=== PATIENT | female | born 1955 | race Caucasian/White ===

== ENCOUNTER 2022-06-22 13:07 | Inpatient (IN) | payer BC ==
[~2022-06-22] VITALS: Ht 172.7 cm; Wt 114.8 kg
[~2022-06-22 13:07] MED LIST: BENA-6 PO; LABE100T8 PO; LIP20 PO; MECL-160 PO; NOR10 PO
[2022-06-22 13:10] VITALS: BP_SYST 192
--- NOTE | 2022-06-22 13:10 | NUR ---
Patient triaged and placed in waiting room. VSS and patient appears in no acute distress at this time. Accompanied by SELF, awaiting available bed, and MD notified of need for MSE.
[2022-06-22 15:15] LABS: BASOPHILS % (AUTO) 0.3 % (0.0-2.0); EOSINOPHILS # (AUTO) 0.1 K/uL (0.0-0.4); HEMATOCRIT 41.5 % (36-48); LYMPHOCYTES # (AUTO) 1.2 K/uL (1.0-5.5); LYMPHOCYTES % (AUTO) 14.6 % (20.5-51.5); MEAN CORPUSCULAR VOLUME 95 fL (79.0-98.0); MONOCYTES # (AUTO) 0.5 K/uL (0.0-1.0); MONOCYTES % (AUTO) 6.5 % (1.7-9.3); NEUTROPHILS # (AUTO) 6.2 K/uL (1.8-7.7); NEUTROPHILS % (AUTO) 77.6 % (40.0-70.0); PLATELET COUNT (AUTO) 168 K/uL (130-430); RED BLOOD CELL COUNT(AUTO) 4.36 MIL/uL (4.2-6.2); RED CELL DISTRIBUTION WIDTH 13.7 % (9.0-15.0)
[2022-06-22 15:19] LABS: ANION GAP 5 (5-15); CALCIUM 9.3 mg/dL (8.4-11.0); CHLORIDE 102 mmol/L (98-107); CREATININE 1.19 mg/dL (0.55-1.30); GLUCOSE 108 mg/dL (70-99); POTASSIUM 4.5 mmol/L (3.5-5.1); SODIUM SERUM 137 mmol/L (136-145); UREA NITROGEN, BLOOD 12 mg/dL (8-21)
[2022-06-22 15:28] LABS: ALANINE AMINOTRANSFERASE 44 U/L (12-78); ALBUMIN 3.8 g/dL (3.4-4.8); ASPARTATE AMINOTRANSFERASE 23 U/L (10-37); TOTAL BILIRUBIN 0.7 mg/dL (0.0-1.0)
[2022-06-22 15:30] LABS: GFR AFRICAN AMERICAN 58 mL/min (>90)
[2022-06-22 15:32] LABS: C-REACTIVE PROTEIN QUANT < 0.2 mg/dL (0-0.5)
--- NOTE | 2022-06-22 15:43 | NUR ---
Patient to ER bed 2 to gown for evaluation. Side rails up.
--- NOTE | 2022-06-22 15:44 | NUR ---
Pt came from home c/o hot flashes and heart palpitations intermittent over the last 5 days. Pt states she was being treated for sinus infection with the use of dayquil and mor and became concerned she was experiencing negative side effects. Pt has hx of HTN, is A&Ox4, calm and cooperative. Will continue to monitor and provide care as ordered.
--- NOTE | 2022-06-22 15:50 | NUR ---
ER at bedside examining patient.
[2022-06-22] MEDS ORDERED: ASPIRIN 81 MG TAB.CHEW PO ONE (16:00)
[2022-06-22] MEDS ORDERED: ZOLPIDEM TARTRATE 5 MG TABLET PO PRN (16:30)
[2022-06-22] MEDS ORDERED: MUPIROCIN 2% TOPICAL OINTMENT 22 GM NS PRN (16:30)
[2022-06-22] MEDS ORDERED: DOCUSATE SODIUM 100 MG CAPSULE PO PRN (16:30)
[2022-06-22] MEDS ORDERED: MAGNESIUM SULFATE 50 ML IV PRN (16:30)
[2022-06-22] MEDS ORDERED: ONDANSETRON HCL 4 MG/2 ML VIAL IVP PRN (16:30)
[2022-06-22] MEDS ORDERED: POTASSIUM CHLORIDE 20 MEQ TAB.PRT.SR PO PRN (16:30)
[2022-06-22] MEDS ORDERED: METOPROLOL TARTRATE 50 MG TABLET PO ONE ×2 (16:30→16:45)
[2022-06-22] MEDS ORDERED: LORazepam 2 MG/ML VIAL IVP PRN (16:30)
[2022-06-22] MEDS ORDERED: MORPHINE 2 MG/ML INJ. SYRINGE IVP PRN ×2 (16:30)
[2022-06-22] MEDS ORDERED: ACETAMINOPHEN 325 MG TABLET PO PRN (16:30)
--- NOTE | 2022-06-22 16:34 | NUR ---
Admit bed requested Patient will be admitted to care of . Admitted to TELE unit. Diagnosis TYPE 2 [place] Inpatient (Yes or No) Y Observation (Yes or No) N Orientation concerns or request close to nursing station (Yes or No) N Covid Status PENDING On vent or bipap NO Isolation requirements NO Needs a sitter NO From Home (Yes or if No enter name of facility) YES Requires Dialysis (Yes or No) NO Med Rec Completed (Yes of No) PENDING
[2022-06-22] MEDS ORDERED: LISI-209 PO (16:44)
[2022-06-22] MEDS: NACL 0.9% 1,000 ML IV SCH (17:49)
--- NOTE | 2022-06-22 19:35 | NUR ---
Received pt up in bed, verbally responsive. Denies any pain/discomfort at this time. Breathing adequately on RA. Pending admit bed at this time.
--- NOTE | 2022-06-22 20:38 | NUR ---
ADMISSION NOTE Received patient from ER via gurney. Patient admitted with diagnosis of TYPE 2 OK. Patient is awake, alert, oriented X 4. Patient oriented to hospital room, call light, toileting, pain management and safety-teach back done. Patient informed that will be BIJAN nurse and that their room number is 118B. Personal belongings checked and Belongings List documented. Call light within reach.
--- NOTE | 2022-06-22 20:46 | NUR ---
Patient will be admitted to care of Dr. Michaud. Admitted to [facility], room 118B. Daughter will take belongings home, pt only keeping her cellphone. Complete and up to date summary report printed. SBAR report given at bedside to GLADYS Rodriguez with opportunity for questions.
[2022-06-22 20:55] VITALS: BP_SYST 180
[2022-06-22] MEDS ORDERED: BENAZEPRIL HCL 20 MG TABLET (LOTENSIN) PO SCH (21:00)
[2022-06-22] MEDS ORDERED: CELE200C PO (21:10)
[2022-06-22] MEDS: METOPROLOL TARTRATE 50 MG TABLET PO SCH (22:05)
[2022-06-22] MEDS: cloNIDine HCL 0.1 MG TABLET PO PRN (22:05)
[2022-06-22] MEDS: ATORVASTATIN 20 MG TABLET PO SCH (22:06)
[2022-06-22 23:09] VITALS: BP_SYST 178
--- NOTE | 2022-06-23 01:18 | NUR ---
CONSULT: CONSULT CALLED FOR DR. PALMA REASON FOR CONSULT" ELEVATED TROPONIN REQUESTING CONSULT: DR. GUERREOR DYEING MACHINE BACK TENDER PHONE NUMBER: [phone]
[2022-06-23] MEDS: NACL 0.9% 1,000 ML IV SCH (05:00)
--- NOTE | 2022-06-23 07:50 | NUR ---
INITIAL ROUNDS Received pt AAOx4, no s/s resp distress, no c/o chest pain or chest pressure, no c/o pain or discomfort. Plan of care for the day reviewed with pt-pt verbalized her understanding. Pt stated her sister a week ago from cancer and this causes her to feel sad and anxious at times. Pain management, disease process, skin and safety discussed-teach back done. Side rails upx3, room close to nursing station for safety. Call light within reach.
[2022-06-23 08:23] LABS: BASOPHILS % (AUTO) 0.4 % (0.0-2.0); EOSINOPHILS # (AUTO) 0.1 K/uL (0.0-0.4); EOSINOPHILS % (AUTO) 1.2 % (0.0-4.0); HEMATOCRIT 40.8 % (36-48); LYMPHOCYTES # (AUTO) 1.4 K/uL (1.0-5.5); LYMPHOCYTES % (AUTO) 21.5 % (20.5-51.5); MEAN CORPUSCULAR VOLUME 95 fL (79.0-98.0); MONOCYTES # (AUTO) 0.4 K/uL (0.0-1.0); MONOCYTES % (AUTO) 6.2 % (1.7-9.3); NEUTROPHILS # (AUTO) 4.5 K/uL (1.8-7.7); NEUTROPHILS % (AUTO) 70.7 % (40.0-70.0); PLATELET COUNT (AUTO) 158 K/uL (130-430); RED BLOOD CELL COUNT(AUTO) 4.28 MIL/uL (4.2-6.2); RED CELL DISTRIBUTION WIDTH 13.5 % (9.0-15.0); WHITE BLOOD COUNT (AUTO) 6.3 K/uL (4.8-10.8)
[2022-06-23 08:29] VITALS: BP_SYST 125
[2022-06-23 08:42] LABS: CALCIUM 9.2 mg/dL (8.4-11.0); CREATININE 0.94 mg/dL (0.55-1.30); POTASSIUM 4.3 mmol/L (3.5-5.1)
[2022-06-23] MEDS: amLODIPine BESYLATE 10 MG TABLET PO SCH ×2 (09:00→09:31)
[2022-06-23] MEDS ORDERED: LISINOPRIL 10 MG TABLET (PRINIVIL) PO SCH (09:00)
[2022-06-23] MEDS: METOPROLOL TARTRATE 50 MG TABLET PO SCH ×2 (09:31→21:06)
[2022-06-23] MEDS: ENOXAPARIN SODIUM 40 MG/0.4 ML SYRINGE SUBCUT SCH (09:32)
[2022-06-23] MEDS ORDERED: AMOXICILLIN/CLAVULANATE POTASSIUM 875 MG TABLET PO ONE (12:00)
[2022-06-23 17:01] VITALS: BP_SYST 125
[2022-06-23 20:02] VITALS: BP_SYST 152
[2022-06-23] MEDS: AMOXICILLIN/CLAVULANATE POTASSIUM 875 MG TABLET PO SCH (21:05)
[2022-06-23] MEDS: ATORVASTATIN 20 MG TABLET PO SCH (21:05)
[2022-06-24] VITALS: BP_SYST 155
[2022-06-24 01:00] VITALS: BP_SYST 132
[2022-06-24 07:08] LABS: BASOPHILS % (AUTO) 0.5 % (0.0-2.0); EOSINOPHILS # (AUTO) 0.1 K/uL (0.0-0.4); EOSINOPHILS % (AUTO) 1.6 % (0.0-4.0); HEMATOCRIT 40.5 % (36-48); LYMPHOCYTES # (AUTO) 2.1 K/uL (1.0-5.5); LYMPHOCYTES % (AUTO) 33.3 % (20.5-51.5); MEAN CORPUSCULAR VOLUME 96 fL (79.0-98.0); MONOCYTES # (AUTO) 0.5 K/uL (0.0-1.0); MONOCYTES % (AUTO) 8.1 % (1.7-9.3); NEUTROPHILS # (AUTO) 3.7 K/uL (1.8-7.7); NEUTROPHILS % (AUTO) 56.5 % (40.0-70.0); PLATELET COUNT (AUTO) 167 K/uL (130-430); RED BLOOD CELL COUNT(AUTO) 4.23 MIL/uL (4.2-6.2); RED CELL DISTRIBUTION WIDTH 13.6 % (9.0-15.0); WHITE BLOOD COUNT (AUTO) 6.5 K/uL (4.8-10.8)
[2022-06-24 07:23] LABS: CREATININE 1.08 mg/dL (0.55-1.30); POTASSIUM 3.8 mmol/L (3.5-5.1)
[2022-06-24 08:00] VITALS: BP_SYST 169
[2022-06-24] MEDS: AMOXICILLIN/CLAVULANATE POTASSIUM 875 MG TABLET PO SCH ×2 (08:54→20:38)
[2022-06-24] MEDS: cloNIDine HCL 0.1 MG TABLET PO PRN (08:55)
[2022-06-24] MEDS: amLODIPine BESYLATE 10 MG TABLET PO SCH ×2 (08:56→09:00)
[2022-06-24] MEDS: METOPROLOL TARTRATE 50 MG TABLET PO SCH ×2 (08:56→20:38)
[2022-06-24] MEDS: ENOXAPARIN SODIUM 40 MG/0.4 ML SYRINGE SUBCUT SCH (08:58)
--- NOTE | 2022-06-24 18:57 | NUR ---
PT resting in bed with call light in reach. pt had elevated BP in AM, PRN Clonidine was administered. district traffic chief was informed. No new orders. pt pending echocardiogram. pt denies discomfort or pain.
[2022-06-24 20:00] VITALS: BP_SYST 133
[2022-06-24] MEDS: ATORVASTATIN 20 MG TABLET PO SCH (20:40)
[2022-06-25] VITALS: BP_SYST 135
[2022-06-25 07:20] LABS: BASOPHILS % (AUTO) 0.2 % (0.0-2.0); EOSINOPHILS # (AUTO) 0.1 K/uL (0.0-0.4); EOSINOPHILS % (AUTO) 1.5 % (0.0-4.0); HEMATOCRIT 40.5 % (36-48); LYMPHOCYTES % (AUTO) 29.1 % (20.5-51.5); MEAN CORPUSCULAR VOLUME 95 fL (79.0-98.0); MONOCYTES # (AUTO) 0.5 K/uL (0.0-1.0); MONOCYTES % (AUTO) 7.5 % (1.7-9.3); NEUTROPHILS # (AUTO) 4.2 K/uL (1.8-7.7); NEUTROPHILS % (AUTO) 61.7 % (40.0-70.0); PLATELET COUNT (AUTO) 150 K/uL (130-430); RED BLOOD CELL COUNT(AUTO) 4.28 MIL/uL (4.2-6.2); RED CELL DISTRIBUTION WIDTH 13.4 % (9.0-15.0); WHITE BLOOD COUNT (AUTO) 6.8 K/uL (4.8-10.8)
[2022-06-25 08:00] VITALS: BP_SYST 146
--- NOTE | 2022-06-25 08:16 | NUR ---
Assumed pt care. Pt lying in bed, tele monitor in place, call light in reach. Vital signs stable. Pt pending echocardiogram, will monitor for results.
[2022-06-25 08:34] LABS: CREATININE 1.12 mg/dL (0.55-1.30); POTASSIUM 3.8 mmol/L (3.5-5.1)
[2022-06-25] MEDS: AMOXICILLIN/CLAVULANATE POTASSIUM 875 MG TABLET PO SCH (08:48)
[2022-06-25] MEDS: METOPROLOL TARTRATE 50 MG TABLET PO SCH (08:48)
[2022-06-25] MEDS: ENOXAPARIN SODIUM 40 MG/0.4 ML SYRINGE SUBCUT SCH (08:48)
[2022-06-25 11:40] VITALS: BP_SYST 138
--- NOTE | 2022-06-25 14:50 | NUR ---
D/C Patient Patient given medication reconciliation form and D/C instructions. Exit Care provided. Patient verbalized understanding. MD discussed with patient the results and treatment provided. Ambulatory with steady gait for discharge to home. Patient in stable condition, ID band removed. IV catheter removed, intact and dressing applied, no active bleeding. Patient educated on IA and diet. All belongings sent with patient.
== END 2022-06-25 14:50 | disposition home or self-care (01) | DRG 152 ==
LOC: SED 13:07 → STU 16:20
PROVIDERS: ADMIT General Practice; ATTEND General Practice
DX: J01.90 Acute sinusitis, unspecified (principal); I21.A1 Myocardial infarction type 2; I10 Essential (primary) hypertension; I45.10 Unspecified right bundle-branch block; E66.01 Morbid (severe) obesity due to excess calories; M54.50 Low back pain, unspecified; Z20.822 Contact with and (suspected) exposure to COVID-19; F41.9 Anxiety disorder, unspecified; E78.5 Hyperlipidemia, unspecified; F41.1 Generalized anxiety disorder; Z88.1 Allergy status to other antibiotic agents; Z88.8 Allergy status to other drugs, medicaments and biological substances; Z79.899 Other long term (current) drug therapy; Z87.891 Personal history of nicotine dependence; Z80.0 Family history of malignant neoplasm of digestive organs; Z79.82 Long term (current) use of aspirin; Z88.6 Allergy status to analgesic agent; Z68.38 Body mass index [BMI] 38.0-38.9, adult
CPT/HCPCS: 36415; 36430; 70450-TC; 71045; 76376; 80048; 80053; 80061; 83036; 83735; 84443; 84484; 84702; 85025; 86140; 93005; 93306; 99285; G0378; J1650

== ENCOUNTER 2022-06-27 16:47 | Inpatient (IN) | payer BC ==
[~2022-06-27] VITALS: Ht 172.7 cm; Wt 113.9 kg
[2022-06-27 16:47] VITALS: BP_SYST 218
[~2022-06-27 16:47] MED LIST changes: -BENA-6 PO; +CELE200C PO; -MECL-160 PO; -NOR10 PO
[2022-06-27] MEDS ORDERED: LABETALOL HCL 100 MG TABLET PO ONE (17:30)
[2022-06-27] MEDS ORDERED: ONDANSETRON 4 MG ODT TAB PO ONE (17:30)
[2022-06-27 18:01] LABS: BASOPHILS % (AUTO) 0.4 % (0.0-2.0); EOSINOPHILS # (AUTO) 0.1 K/uL (0.0-0.4); EOSINOPHILS % (AUTO) 0.9 % (0.0-4.0); HEMATOCRIT 41.7 % (36-48); LYMPHOCYTES # (AUTO) 1.3 K/uL (1.0-5.5); LYMPHOCYTES % (AUTO) 19.5 % (20.5-51.5); MEAN CORPUSCULAR VOLUME 95 fL (79.0-98.0); MONOCYTES # (AUTO) 0.4 K/uL (0.0-1.0); MONOCYTES % (AUTO) 5.5 % (1.7-9.3); NEUTROPHILS # (AUTO) 4.8 K/uL (1.8-7.7); NEUTROPHILS % (AUTO) 73.7 % (40.0-70.0); PLATELET COUNT (AUTO) 153 K/uL (130-430); RED CELL DISTRIBUTION WIDTH 13.3 % (9.0-15.0); WHITE BLOOD COUNT (AUTO) 6.5 K/uL (4.8-10.8)
[2022-06-27 18:26] LABS: ANION GAP 6 (5-15); CALCIUM 9.1 mg/dL (8.4-11.0); CHLORIDE 102 mmol/L (98-107); CREATININE 1.06 mg/dL (0.55-1.30); GLUCOSE 123 mg/dL (70-99); POTASSIUM 4.3 mmol/L (3.5-5.1); UREA NITROGEN, BLOOD 18 mg/dL (8-21)
[2022-06-27 18:31] LABS: ALANINE AMINOTRANSFERASE 51 U/L (12-78); ALBUMIN 3.7 g/dL (3.4-4.8); ASPARTATE AMINOTRANSFERASE 44 U/L (10-37); GFR AFRICAN AMERICAN 66 mL/min (>90); TOTAL BILIRUBIN 0.7 mg/dL (0.0-1.0)
[2022-06-27] MEDS ORDERED: METOCLOPRAMIDE HCL 10 MG TABLET PO ONE (20:30)
[2022-06-27] MEDS ORDERED: ACETAMINOPHEN 325 MG TABLET PO ONE (20:30)
[2022-06-28 04:15] VITALS: BP_SYST 150
[2022-06-28] MEDS: LABETALOL HCL 100 MG TABLET PO SCH ×2 (09:00→21:00)
[2022-06-28] MEDS ORDERED: ASPIRIN 81 MG TAB.CHEW PO SCH (09:00)
[2022-06-28] MEDS ORDERED: LOSARTAN/HYDROCHLOROTHIAZIDE TAB (HYZAAR 50-12.5 MG) PO SCH (09:00)
[2022-06-28 11:15] VITALS: BP_SYST 139
[2022-06-28] MEDS ORDERED: ACETAMINOPHEN 325 MG TABLET PO PRN (12:15)
[2022-06-28] MEDS ORDERED: ONDANSETRON HCL 4 MG/2 ML VIAL IVP PRN (12:15)
[2022-06-28] MEDS ORDERED: HYDROcodone/ACETAMIN 5-325 MG TAB (NORCO/ VICODIN) PO PRN (12:15)
[2022-06-28] MEDS ORDERED: HYDROcodone/ACETAMIN 10-325 MG TAB PO PRN (12:15)
[2022-06-28] MEDS ORDERED: LORazepam 2 MG/ML VIAL IVP PRN (12:15)
[2022-06-28] MEDS ORDERED: NALOXONE HCL 0.4 MG/ML AMP (NARCAN) IVP PRN ×2 (12:15)
[2022-06-28] MEDS ORDERED: LABETALOL HCL 100 MG TABLET PO SCH (14:00)
[2022-06-28] MEDS ORDERED: NORMAL SALINE 5 ML DISP.SYRIN IVF SCH (14:00)
[2022-06-28] MEDS: ATORVASTATIN 20 MG TABLET PO SCH (14:43)
[2022-06-28] MEDS: NORMAL SALINE 5 ML DISP.SYRIN IVF SCH ×2 (14:46→21:26)
[2022-06-28] MEDS: HYDROCHLOROTHIAZIDE 12.5 MG CAPSULE (HCTZ) PO SCH (14:47)
[2022-06-28] MEDS: LOSARTAN POTASSIUM 50 MG TABLET (COZAAR) PO SCH (14:48)
[2022-06-28 15:52] VITALS: BP_SYST 127
[2022-06-28 19:35] VITALS: BP_SYST 120
[2022-06-28] MEDS ORDERED: ATORVASTATIN 20 MG TABLET PO SCH (21:00)
[2022-06-28] MEDS: AMOXICILLIN/CLAVULANATE POTASSIUM 875 MG TABLET PO SCH (21:18)
[2022-06-29] VITALS: BP_SYST 126
[2022-06-29] MEDS: NORMAL SALINE 5 ML DISP.SYRIN IVF SCH ×3 (05:31→21:34)
[2022-06-29 07:21] LABS: CREATININE 1.04 mg/dL (0.55-1.30); POTASSIUM 3.7 mmol/L (3.5-5.1)
[2022-06-29 07:27] LABS: ALBUMIN 3.4 g/dL (3.4-4.8); PHOSPHORUS 3.3 mg/dL (2.7-4.5); TOTAL BILIRUBIN 0.7 mg/dL (0.0-1.0)
[2022-06-29 08:00] VITALS: BP_SYST 193
[2022-06-29 08:06] LABS: BASOPHILS % (AUTO) 0.5 % (0.0-2.0); EOSINOPHILS # (AUTO) 0.1 K/uL (0.0-0.4); EOSINOPHILS % (AUTO) 1.3 % (0.0-4.0); HEMATOCRIT 41.1 % (36-48); LYMPHOCYTES # (AUTO) 1.5 K/uL (1.0-5.5); LYMPHOCYTES % (AUTO) 23.5 % (20.5-51.5); MEAN CORPUSCULAR VOLUME 96 fL (79.0-98.0); MONOCYTES # (AUTO) 0.4 K/uL (0.0-1.0); MONOCYTES % (AUTO) 6.3 % (1.7-9.3); NEUTROPHILS # (AUTO) 4.5 K/uL (1.8-7.7); NEUTROPHILS % (AUTO) 68.4 % (40.0-70.0); PLATELET COUNT (AUTO) 156 K/uL (130-430); RED CELL DISTRIBUTION WIDTH 13.4 % (9.0-15.0); WHITE BLOOD COUNT (AUTO) 6.5 K/uL (4.8-10.8)
[2022-06-29] MEDS: HYDROCHLOROTHIAZIDE 12.5 MG CAPSULE (HCTZ) PO SCH (08:47)
[2022-06-29] MEDS: LOSARTAN POTASSIUM 50 MG TABLET (COZAAR) PO SCH (08:47)
[2022-06-29] MEDS: CELECOXIB 200 MG CAPSULE PO SCH (08:48)
[2022-06-29] MEDS: ATORVASTATIN 20 MG TABLET PO SCH (08:48)
[2022-06-29] MEDS: LABETALOL HCL 100 MG TABLET PO SCH (08:49)
[2022-06-29] MEDS: AMOXICILLIN/CLAVULANATE POTASSIUM 875 MG TABLET PO SCH ×2 (08:54→20:31)
[2022-06-29 12:21] VITALS: BP_SYST 138
[2022-06-29 16:07] VITALS: BP_SYST 123
[2022-06-29 19:35] VITALS: BP_SYST 133
[2022-06-30] VITALS: BP_SYST 134
[2022-06-30] MEDS: NORMAL SALINE 5 ML DISP.SYRIN IVF SCH (06:23)
[2022-06-30 08:00] VITALS: BP_SYST 165
[2022-06-30] MEDS: HYDROCHLOROTHIAZIDE 12.5 MG CAPSULE (HCTZ) PO SCH (08:08)
[2022-06-30] MEDS: LOSARTAN POTASSIUM 50 MG TABLET (COZAAR) PO SCH (08:08)
[2022-06-30] MEDS: ATORVASTATIN 20 MG TABLET PO SCH (08:09)
[2022-06-30] MEDS: CELECOXIB 200 MG CAPSULE PO SCH (08:09)
[2022-06-30] MEDS: AMOXICILLIN/CLAVULANATE POTASSIUM 875 MG TABLET PO SCH (09:00)
[2022-06-30] MEDS ORDERED: HYDR12.585 PO (09:47)
[2022-06-30] MEDS ORDERED: LOSA100T3 PO (09:47)
[2022-06-30 10:30] VITALS: BP_SYST 165
[2022-06-30 11:14] LABS: CALCIUM 9.3 mg/dL (8.4-11.0); CREATININE 1.05 mg/dL (0.55-1.30); POTASSIUM 4.1 mmol/L (3.5-5.1)
[2022-06-30 14:15] LABS: BASOPHILS % (AUTO) 0.3 % (0.0-2.0); EOSINOPHILS # (AUTO) 0.1 K/uL (0.0-0.4); EOSINOPHILS % (AUTO) 1.1 % (0.0-4.0); HEMATOCRIT 41.6 % (36-48); LYMPHOCYTES # (AUTO) 1.9 K/uL (1.0-5.5); MEAN CORPUSCULAR VOLUME 96 fL (79.0-98.0); MONOCYTES # (AUTO) 0.5 K/uL (0.0-1.0); MONOCYTES % (AUTO) 6.6 % (1.7-9.3); NEUTROPHILS # (AUTO) 4.5 K/uL (1.8-7.7); PLATELET COUNT (AUTO) 157 K/uL (130-430); RED BLOOD CELL COUNT(AUTO) 4.35 MIL/uL (4.2-6.2); RED CELL DISTRIBUTION WIDTH 13.7 % (9.0-15.0); WHITE BLOOD COUNT (AUTO) 6.9 K/uL (4.8-10.8)
[2022-07-01] MEDS ORDERED: LOSARTAN POTASSIUM 50 MG TABLET (COZAAR) PO SCH (09:00)
== END 2022-06-30 11:00 | disposition home or self-care (01) | DRG 313 ==
LOC: SED 16:47 → STU 20:48
PROVIDERS: ADMIT Preventive Medicine Preventive Medicine/Occupational Environmental Medicine; ATTEND Preventive Medicine Preventive Medicine/Occupational Environmental Medicine
DX: R07.89 Other chest pain (principal); I24.8 Other forms of acute ischemic heart disease; R79.89 Other specified abnormal findings of blood chemistry; E78.5 Hyperlipidemia, unspecified; G89.29 Other chronic pain; I10 Essential (primary) hypertension; R77.8 Other specified abnormalities of plasma proteins; M54.50 Low back pain, unspecified; I45.10 Unspecified right bundle-branch block; Z20.822 Contact with and (suspected) exposure to COVID-19; Z79.899 Other long term (current) drug therapy; Z87.891 Personal history of nicotine dependence; Z88.6 Allergy status to analgesic agent
CPT/HCPCS: 36415; 71045; 80048; 80053; 83735; 84100; 84484; 85025; 87081; 93005; 99285; G0378; J8597; Q0162

== ENCOUNTER 2022-08-03 20:26 | Inpatient (IN) | payer BC ==
[~2022-08-03] VITALS: Ht 172.7 cm; Wt 109.8 kg
[~2022-08-03 20:26] MED LIST changes: +HYDR12.585 PO; -LABE100T8 PO; +LOSA100T3 PO
[2022-08-03 20:31] VITALS: BP_SYST 92
--- NOTE | 2022-08-03 20:31 | NUR ---
Placed in room 06 . Placed on sales associate, blood pressure machine and pulse oximeter. To gown for exam. Side rails up. Report given to GLADYS ALONZO
--- NOTE | 2022-08-03 21:01 | NUR ---
COVID SWAB SENT TO LAB.
[2022-08-03 21:09] LABS: BASOPHILS % (AUTO) 0.2 % (0.0-2.0); EOSINOPHILS % (AUTO) 0.2 % (0.0-4.0); HEMATOCRIT 40.2 % (36-48); HEMOGLOBIN 14.1 g/dL (12.0-16.0); LYMPHOCYTES % (AUTO) 22.8 % (20.5-51.5); MEAN CORPUSCULAR HEMOGLOBIN 33 pg (27-31); MEAN CORPUSCULAR HGB CONC 35 % (32-36); MEAN CORPUSCULAR VOLUME 94 fL (79.0-98.0); MONOCYTES # (AUTO) 0.7 K/uL (0.0-1.0); MONOCYTES % (AUTO) 7.6 % (1.7-9.3); NEUTROPHILS # (AUTO) 6.2 K/uL (1.8-7.7); NEUTROPHILS % (AUTO) 69.2 % (40.0-70.0); PLATELET COUNT (AUTO) 149 K/uL (130-430); RED BLOOD CELL COUNT(AUTO) 4.26 MIL/uL (4.2-6.2); RED CELL DISTRIBUTION WIDTH 12.9 % (9.0-15.0); WHITE BLOOD COUNT (AUTO) 8.9 K/uL (4.8-10.8)
--- NOTE | 2022-08-03 21:11 | NUR ---
BIBS W C/O OF RAPID HEART RATE THAT STARTED AT APPROX. 6PM. PT STATED SHE BELIEVES IT WAS THE PREDNISONE SHE WAS TAKING FOR SINUS INFECTION. HEART RATE CURRENTLY 83
[2022-08-03 21:13] LABS: ANION GAP 7 (5-15); CALCIUM 8.9 mg/dL (8.4-11.0); CHLORIDE 102 mmol/L (98-107); CREATININE 1.63 mg/dL (0.55-1.30); GLUCOSE 123 mg/dL (70-99); POTASSIUM 3.7 mmol/L (3.5-5.1); UREA NITROGEN, BLOOD 35 mg/dL (8-21)
[2022-08-03 21:16] LABS: GFR AFRICAN AMERICAN 40 mL/min (>90)
[2022-08-03 21:20] LABS: ALANINE AMINOTRANSFERASE 83 U/L (12-78); ALBUMIN 3.8 g/dL (3.4-4.8); ASPARTATE AMINOTRANSFERASE 35 U/L (10-37); TOTAL BILIRUBIN 0.3 mg/dL (0.0-1.0)
[2022-08-03] MEDS ORDERED: DILTIAZEM HCL 30 MG TABLET PO ONE (21:30)
[2022-08-03] MEDS ORDERED: NACL 0.9% 1,000 ML IV ONE (21:30)
[2022-08-03] MEDS ORDERED: DILTIAZEM HCL 30 MG TABLET ONE (22:04)
--- NOTE | 2022-08-03 22:07 | NUR ---
Patient resting quietly. No acute distress noted. Vital signs within normal range.
--- NOTE | 2022-08-03 23:00 | NUR ---
Admit bed requested Patient will be admitted to care of . Admitted to TELE unit. Diagnosis ACUTE KIDNEY INJURY Inpatient (Yes or No) Y Observation (Yes or No) N Orientation concerns or request close to nursing station (Yes or No) N Covid Status NEG On vent or bipap NO Isolation requirements NO Needs a sitter NO From Home (Yes or if No enter name of facility) YES Requires Dialysis (Yes or No) NO Med Rec Completed (Yes of No) YES
[2022-08-03] MEDS ORDERED: HYDR12.55 (23:14)
[2022-08-03] MEDS ORDERED: LOSA100T3 PO (23:14)
[2022-08-03] MEDS ORDERED: CYCL10TA24 PO (23:14)
[2022-08-03] MEDS ORDERED: DOXA4TAB2 PO (23:14)
[2022-08-03] MEDS ORDERED: LIP40 PO (23:14)
--- NOTE | 2022-08-03 23:15 | NUR ---
Medication reconciliation completed with information provided by PATIENT. Any prior medication reconciliation on file was reviewed and corrected.
[2022-08-03] MEDS ORDERED: DOCUSATE SODIUM 100 MG/10 ML UDC PO PRN (23:30)
[2022-08-03] MEDS ORDERED: ZOLPIDEM TARTRATE 5 MG TABLET PO PRN (23:30)
[2022-08-03] MEDS ORDERED: MORPHINE 2 MG/ML INJ. SYRINGE IVP PRN (23:30)
[2022-08-03] MEDS ORDERED: NACL 0.9% 2,000 ML IV ONE (23:30)
[2022-08-03] MEDS ORDERED: HYDROcodone/ACETAMIN 7.5-325 MG TAB PO PRN (23:30)
[2022-08-03] MEDS ORDERED: guaiFENesin/DEXTROMETHORPHAN 10 ML UDC PO PRN (23:30)
[2022-08-03] MEDS ORDERED: ONDANSETRON HCL 4 MG/2 ML VIAL IVP PRN (23:30)
[2022-08-03] MEDS ORDERED: ACETAMINOPHEN 500 MG TABLET PO PRN (23:30)
[2022-08-03] MEDS: NACL 0.9% 1,000 ML IV SCH (23:48)
--- NOTE | 2022-08-04 00:30 | NUR ---
Patient will be admitted to care of [facility]. Admitted to tele unit. Will go to room 133b. Belongings list completed. Complete and up to date summary report printed. SBAR report to be given at bedside with opportunity for questions.
--- NOTE | 2022-08-04 00:41 | NUR ---
Admission Note Received patient from ER with diagnosis of ACUTE KIDNEY INJURY. Initial Plan of Care discussed-patient verbalized understanding.Oriented to room, call light, pain management and safety.
[2022-08-04 01:11] VITALS: BP_SYST 106
--- NOTE | 2022-08-04 01:11 | NUR ---
ADMISSION NOTE Received patient from ER via gurney. Patient admitted with diagnosis of acute kidney injury. Patient is awake, alert, oriented X 4. Patient oriented to hospital room, call light, toileting, pain management and safety-teach back done. Patient informed that I (Brenda) will be her nurse and that their room number is 129-A. Personal belongings checked and Belongings List documented. Call light within reach. -Confirmed with Vikram wellington as AUBREY martinez with name, , and Pt's ID at bedside prior put telemetry box on pt. Pt denies any chest pain,pain,sob,or any acute distress. Both IV sites of LFA #20 and RAC #18 patent, no s/s any infiltration noted. NS @125 ml/hr. Pt is able to ambulate with steady gaits w/o any assistance. Discussed poc,all safety measures, not to get OOB by herself, and to use call light whenever experiencing any chest pain,pain,sob,or any acute distress, pt verbalized understanding. All safety measures in place, side rails x2,call light w/in reach. cont to monitor pt.
--- NOTE | 2022-08-04 04:10 | NUR ---
NOTES; -Pt is refused jose f SCD. Pt stated, "I can walk around and I don't need this machine on my legs."
--- NOTE | 2022-08-04 04:15 | NUR ---
ROUNDS; -Pt is asleep in bed comfortably. No s/s any chest pain,pain,sob,or any acute distress noted. All safety measures in place. Cont to monitor pt.
--- NOTE | 2022-08-04 06:32 | NUR ---
CLOSING NOTES; -Pt is resting in bed comfortably. Pt awoke upon making rounds. IVF infusing well, no s/s any infiltration noted. Pt denies any chest pain, pain,sob,or any acute distress. Call light w/in reach, side rails x2. Will endorse to next nurse to cont care.
[2022-08-04 08:57] VITALS: BP_SYST 129
[2022-08-04] MEDS ORDERED: POTASSIUM CHLORIDE 20 MEQ TAB.PRT.SR PO PRN (09:00)
[2022-08-04] MEDS ORDERED: HYDROCHLOROTHIAZIDE 12.5 MG CAPSULE (HCTZ) PO SCH (09:00)
[2022-08-04] MEDS ORDERED: ACETAMINOPHEN 500 MG TABLET PO PRN (09:00)
[2022-08-04] MEDS: PANTOPRAZOLE SODIUM 40 MG TAB PO SCH (09:02)
[2022-08-04] MEDS: LOSARTAN POTASSIUM 50 MG TABLET (COZAAR) PO SCH (09:03)
[2022-08-04] MEDS ORDERED: METOPROLOL TARTRATE 25 MG TABLET PO ONE (09:15)
[2022-08-04] MEDS ORDERED: APIXABAN 2.5 MG TABLET PO ONE (09:15)
[2022-08-04 11:04] LABS: BILIRUBIN,URINE NEGATIVE (NEGATIVE); BLOOD, URINE NEGATIVE (NEGATIVE); CLARITY/URINE CLEAR (CLEAR); COLOR,URINE YELLOW (YELLOW); GLUCOSE,URINE NEGATIVE (NEGATIVE); KETONES,URINE NEGATIVE (NEGATIVE); LEUKOCYTE ESTERASE ,URINE NEGATIVE (NEGATIVE); NITRITE, URINE NEGATIVE (NEGATIVE); PH,URINE 5.5 (5.0-8.0); PROTEIN URINE NEGATIVE (NEGATIVE); UROBILINOGEN,URINE 0.2 (0.2-1.0)
--- NOTE | 2022-08-04 16:15 | NUR ---
Dietitian Recommendations * Cardiac, 60 gm protein/day diet LP, MS, RD Please refer to Nutrition Assessment for details. Addendum: 08/04/22 at [address] Amended: Links added.
[2022-08-04 17:35] LABS: FREE T4 (FREE THYROXINE) 0.9 ng/dL (0.6-1.6); PHOSPHORUS 4.2 mg/dL (2.7-4.5); THYROID STIMULATING HORMONE 2.19 uIu/mL (0.34-4.82)
[2022-08-04 19:30] VITALS: BP_SYST 130
--- NOTE | 2022-08-04 19:40 | NUR ---
PM ASSESSMENT; -Pt is a/ox4, resting in bed comfortably. Pt denies any chest pain,pain,sob,or any acute distress. Both IV sites of LFA #20 and RAC #18 patent, no s/s any infiltration noted. NS @125 ml/hr. Pt is able to ambulate with steady gaits w/o any assistance. Discussed poc,all safety measures, not to get OOB by herself, and to use call light whenever experiencing any chest pain,pain,sob,or any acute distress, pt verbalized understanding. All safety measures in place, side rails x2,call light w/in reach. cont to monitor pt.
[2022-08-04] MEDS: ATORVASTATIN 20 MG TABLET PO SCH (20:36)
[2022-08-04] MEDS: APIXABAN 2.5 MG TABLET PO SCH (20:37)
[2022-08-04] MEDS: NACL 0.9% 1,000 ML IV SCH (20:38)
[2022-08-04] MEDS: METOPROLOL TARTRATE 25 MG TABLET PO SCH (20:43)
[2022-08-04] MEDS ORDERED: CYCLOBENZAPRINE HCL 10 MG TABLET (FLEXERIL) PO SCH (21:00)
--- NOTE | 2022-08-04 22:53 | NUR ---
ROUNDS; -Pt is laying in bed. Pt is c/o headache and legs pain but pt refused to take pain medication this time. VS stable. All safety measures in place. Call light w/in reach. cont to monitor pt.
[2022-08-05 01:08] VITALS: BP_SYST 140
[2022-08-05 01:13] LABS: CALCIUM 8.2 mg/dL (8.4-11.0); CREATININE 1.21 mg/dL (0.55-1.30); POTASSIUM 4.8 mmol/L (3.5-5.1)
[2022-08-05 01:23] LABS: ALBUMIN 3.2 g/dL (3.4-4.8); TOTAL BILIRUBIN 0.3 mg/dL (0.0-1.0)
--- NOTE | 2022-08-05 01:30 | NUR ---
ROUNDS; CRITICAL LAB [id number], IT'S TRENDING DOWN -Pt awakes, laying in bed. Pt denies any chest pain,pain,sob,or any acute distress. IVF infusing well. Call light w /in reach. Cont to monitor pt. Addendum: 08/05/22 at 0142 by [employer], GLADYS GRAHAM ADDITIONAL NOTES --WILL CALL DR. PALMA IN MORNING REGARDING CRITICAL TROPONIN.
--- NOTE | 2022-08-05 04:19 | NUR ---
ROUNDS; -Pt is asleep in bed comfortably. No s/s any chest pain,pain,sob,or any acute distress noted. All safety measures in place. Cont to monitor pt.
--- NOTE | 2022-08-05 06:28 | NUR ---
CLOSING NOTES; -Pt is resting in bed comfortably. IVF infusing well, no s/s any infiltration noted. Pt denies any chest pain, pain,sob,or any acute distress. Call light w/in reach, side rails x2. Will endorse to next nurse to cont care.
--- NOTE | 2022-08-05 06:34 | NUR ---
NOTES; NOTIFIED DR. PALMA REGARDING CRITICAL LAB [id number], IT'S TRENDING DOWN, NO FURTHER ORDER PER MD
[2022-08-05 08:40] VITALS: BP_SYST 156
[2022-08-05] MEDS: PANTOPRAZOLE SODIUM 40 MG TAB PO SCH (08:44)
[2022-08-05] MEDS: LOSARTAN POTASSIUM 50 MG TABLET (COZAAR) PO SCH (08:45)
[2022-08-05] MEDS: METOPROLOL TARTRATE 25 MG TABLET PO SCH ×2 (08:45→21:35)
[2022-08-05] MEDS: APIXABAN 2.5 MG TABLET PO SCH ×2 (08:49→21:37)
[2022-08-05 08:53] LABS: BASOPHILS % (AUTO) 0.6 % (0.0-2.0); EOSINOPHILS # (AUTO) 0.1 K/uL (0.0-0.4); EOSINOPHILS % (AUTO) 1.2 % (0.0-4.0); HEMATOCRIT 37.2 % (36-48); HEMOGLOBIN 13.1 g/dL (12.0-16.0); LYMPHOCYTES # (AUTO) 2.5 K/uL (1.0-5.5); LYMPHOCYTES % (AUTO) 35.3 % (20.5-51.5); MEAN CORPUSCULAR HEMOGLOBIN 33 pg (27-31); MEAN CORPUSCULAR HGB CONC 35 % (32-36); MEAN CORPUSCULAR VOLUME 95 fL (79.0-98.0); MONOCYTES # (AUTO) 0.5 K/uL (0.0-1.0); MONOCYTES % (AUTO) 7.5 % (1.7-9.3); NEUTROPHILS % (AUTO) 55.4 % (40.0-70.0); RED BLOOD CELL COUNT(AUTO) 3.92 MIL/uL (4.2-6.2); RED CELL DISTRIBUTION WIDTH 13.1 % (9.0-15.0)
[2022-08-05 09:47] LABS: WHITE BLOOD COUNT (AUTO) 7.2 K/uL (4.8-10.8)
[2022-08-05 13:45] LABS: PLATELET COUNT (AUTO) 136 K/uL (130-430)
[2022-08-05 16:00] VITALS: BP_SYST 129
[2022-08-05 21:04] VITALS: BP_SYST 132
[2022-08-05] MEDS: ATORVASTATIN 20 MG TABLET PO SCH (21:34)
[2022-08-06 01:07] VITALS: BP_SYST 17
[2022-08-06 06:26] VITALS: BP_SYST 155
[2022-08-06 07:02] LABS: BASOPHILS % (AUTO) 0.3 % (0.0-2.0); EOSINOPHILS # (AUTO) 0.1 K/uL (0.0-0.4); EOSINOPHILS % (AUTO) 1.4 % (0.0-4.0); HEMATOCRIT 36.2 % (36-48); HEMOGLOBIN 12.6 g/dL (12.0-16.0); LYMPHOCYTES # (AUTO) 1.8 K/uL (1.0-5.5); LYMPHOCYTES % (AUTO) 26.5 % (20.5-51.5); MEAN CORPUSCULAR HEMOGLOBIN 33 pg (27-31); MEAN CORPUSCULAR HGB CONC 35 % (32-36); MEAN CORPUSCULAR VOLUME 94 fL (79.0-98.0); MONOCYTES # (AUTO) 0.4 K/uL (0.0-1.0); MONOCYTES % (AUTO) 6.2 % (1.7-9.3); NEUTROPHILS # (AUTO) 4.5 K/uL (1.8-7.7); NEUTROPHILS % (AUTO) 65.6 % (40.0-70.0); PLATELET COUNT (AUTO) 146 K/uL (130-430); RED BLOOD CELL COUNT(AUTO) 3.85 MIL/uL (4.2-6.2); RED CELL DISTRIBUTION WIDTH 12.5 % (9.0-15.0); WHITE BLOOD COUNT (AUTO) 6.9 K/uL (4.8-10.8)
[2022-08-06 07:54] LABS: CALCIUM 8.6 mg/dL (8.4-11.0); CREATININE 1.11 mg/dL (0.55-1.30); POTASSIUM 3.7 mmol/L (3.5-5.1)
[2022-08-06 08:00] VITALS: BP_SYST 187
--- NOTE | 2022-08-06 08:00 | NUR ---
Initial notes Walking in the room, denies any chest pain but complain of some tightness on her neck and some numbness on her left arm earlier today. otherwise denies any chest pain or shortness of breath. DR paredes here and aware. Enc to call for help as needed.
[2022-08-06] MEDS: PANTOPRAZOLE SODIUM 40 MG TAB PO SCH (08:31)
[2022-08-06] MEDS: LOSARTAN POTASSIUM 50 MG TABLET (COZAAR) PO SCH (08:31)
[2022-08-06] MEDS: METOPROLOL TARTRATE 25 MG TABLET PO SCH ×2 (08:32→21:20)
[2022-08-06] MEDS: APIXABAN 2.5 MG TABLET PO SCH ×2 (08:35→21:21)
--- NOTE | 2022-08-06 08:45 | NUR ---
IMPORT CUSTOMER SERVICE MANAGER ACSW Elayne responded to a generated Suicide Risk referral. ACSW reviewed notes and assessments, no indication of suicide risk. ACSW consulted with assigned RN Slime Mcgee who denied patient has expressed SI, or was it disclosed during report. ACSW will continue to be available as needed
--- NOTE | 2022-08-06 09:02 | NUR ---
Notes- Endorse care, pt sitting in bed. Still some numbness on her left arm. Seen by Dr. Michaud and aware.
--- NOTE | 2022-08-06 10:00 | NUR ---
NOTES RECEIVED REPORT FROM THE NURSEJESSICA.
--- NOTE | 2022-08-06 10:40 | NUR ---
OPENING NOTES PT IN BED, RESTING AND WATCHING TV. DENIES ANY PAIN. C/O NUMBNESS TO LEFT UPPER EXTREMITIES. IV S/L REMAIN INTACT AND CLEAN. BED IS LOCKED AND AT LOW POSITION. CALL LIGHT WITHIN REACH. SAFETY PRECAUTION IN PLACED. MET NEEDS. WILL CONTINUE TO MONITOR
--- NOTE | 2022-08-06 14:00 | NUR ---
NOTES; PT IN BED, RESTING. IV SL MAINTAIN PATENT AND INTACT. NO S/S INFILTRATION OR INFECTION. DENIES ANY PAIN OR DISCOMFORT. SAFETY PRECAUTION IN PLACED. BED IS LOCKED AND AT LOWEST POSITION.
[2022-08-06 16:35] VITALS: BP_SYST 158
--- NOTE | 2022-08-06 19:00 | NUR ---
CLOSING NOTE PT IN BED, RESTING. IV SL MAINTAIN PATENT AND INTACT. NO S/S INFILTRATION OR INFECTION. DENIES ANY PAIN OR DISCOMFORT. SAFETY PRECAUTION IN PLACED. BED IS LOCKED AND AT LOWEST POSITION. ENCOURAGED TO USE CALL LIGHT FOR ASSISTANCE. ENDORSE CONTINUITY OF CARE.
--- NOTE | 2022-08-06 20:00 | NUR ---
Pt is a/ox4, resting in bed comfortably. Pt denies any chest pain,pain,sob,or any acute distress. Both IV sites of LFA #20 and RAC #18 patent, Pt mentioned she was supposed to go home today, ut her BP was elevated Pt is able to ambulate with steady gaits w/o any assistance. Discussed poc,all safety measures, not to get OOB by herself, Pt verbalized understanding. All safety measures in place, side rails x2,call light w/in reach. cont to monitor pt.
[2022-08-06 20:34] VITALS: BP_SYST 160
[2022-08-06 20:35] VITALS: BP_SYST 160
[2022-08-06] MEDS: ATORVASTATIN 20 MG TABLET PO SCH (21:20)
[2022-08-07] VITALS (7 sets, daily range): BP systolic 148–201
--- NOTE | 2022-08-07 | NUR ---
Pt cocerned about her HR and medications she is taken. Re educated her on medication order placed by MD. Will need further education.
[2022-08-07 06:49] LABS: BASOPHILS % (AUTO) 0.3 % (0.0-2.0); EOSINOPHILS # (AUTO) 0.1 K/uL (0.0-0.4); EOSINOPHILS % (AUTO) 1.5 % (0.0-4.0); HEMATOCRIT 36.2 % (36-48); HEMOGLOBIN 12.6 g/dL (12.0-16.0); LYMPHOCYTES # (AUTO) 1.8 K/uL (1.0-5.5); LYMPHOCYTES % (AUTO) 26.1 % (20.5-51.5); MEAN CORPUSCULAR HEMOGLOBIN 33 pg (27-31); MEAN CORPUSCULAR HGB CONC 35 % (32-36); MEAN CORPUSCULAR VOLUME 94 fL (79.0-98.0); MONOCYTES # (AUTO) 0.4 K/uL (0.0-1.0); MONOCYTES % (AUTO) 6.2 % (1.7-9.3); NEUTROPHILS # (AUTO) 4.7 K/uL (1.8-7.7); NEUTROPHILS % (AUTO) 65.9 % (40.0-70.0); PLATELET COUNT (AUTO) 148 K/uL (130-430); RED BLOOD CELL COUNT(AUTO) 3.85 MIL/uL (4.2-6.2); RED CELL DISTRIBUTION WIDTH 12.8 % (9.0-15.0); WHITE BLOOD COUNT (AUTO) 7.1 K/uL (4.8-10.8)
[2022-08-07 07:19] LABS: CALCIUM 8.5 mg/dL (8.4-11.0); CREATININE 0.95 mg/dL (0.55-1.30); POTASSIUM 3.6 mmol/L (3.5-5.1)
--- NOTE | 2022-08-07 08:14 | NUR ---
Shift Summary: patient AAOX4. patients SBP 177 and 201 during morning assessment. physician bedside and aware. informed to give AM blood pressure medication and recheck in 2 hrs. no PRN at the moment. will continue care. patient resting. call light within reach. bed set low. patient ambulatory.
[2022-08-07] MEDS: PANTOPRAZOLE SODIUM 40 MG TAB PO SCH (08:30)
[2022-08-07] MEDS: METOPROLOL TARTRATE 25 MG TABLET PO SCH (08:31)
[2022-08-07] MEDS: LOSARTAN POTASSIUM 50 MG TABLET (COZAAR) PO SCH (08:31)
[2022-08-07] MEDS: APIXABAN 2.5 MG TABLET PO SCH (08:33)
[2022-08-07] MEDS ORDERED: APIX5TAB PO (09:22)
[2022-08-07] MEDS ORDERED: DOXA2TAB PO (09:22)
[2022-08-07] MEDS ORDERED: METO25TA6 PO (09:22)
[2022-08-07] MEDS ORDERED: cloNIDine HCL 0.1 MG TABLET PO ONE (11:45)
--- NOTE | 2022-08-07 13:19 | NUR ---
Discharge Summary: patient is AAOX4. vitals are stable. PIV and tele monitor removed per order. patient and daughter given discharge instructions regarding activity, diet, follow up appointment and medication. patient and daughter state they have no questions or concerns upon discharge. patient and daughter state they have all of patients personal belongings prior to discharge. patient refused assistance off unit and preferred to walk off unit independently.
[2022-08-07] MEDS ORDERED: DOXAZOSIN MESYLATE 2 MG TABLET PO SCH (21:00)
== END 2022-08-07 23:38 | disposition home or self-care (01) | DRG 280 ==
LOC: SED 20:26 → STU 23:03
PROVIDERS: ADMIT Family Medicine; ATTEND Family Medicine
DX: I48.0 Paroxysmal atrial fibrillation (principal); N17.0 Acute kidney failure with tubular necrosis; I21.A1 Myocardial infarction type 2; E78.5 Hyperlipidemia, unspecified; R77.8 Other specified abnormalities of plasma proteins; Z20.822 Contact with and (suspected) exposure to COVID-19; E66.9 Obesity, unspecified; F41.9 Anxiety disorder, unspecified; I10 Essential (primary) hypertension; Z79.899 Other long term (current) drug therapy; Z79.1 Long term (current) use of non-steroidal anti-inflammatories (NSAID); Z88.6 Allergy status to analgesic agent; Z68.36 Body mass index [BMI] 36.0-36.9, adult; Z87.891 Personal history of nicotine dependence
CPT/HCPCS: 36415; 70450-TC; 71045; 76376; 80048; 80053; 80061; 81003; 82150; 83690; 83735; 84100; 84439; 84443; 84484; 85025; 93005; 96360; 96361; 99285; G0378; J7030

== ENCOUNTER 2022-10-08 04:45 | Inpatient (IN) | payer BC ==
[~2022-10-08] VITALS: Ht 172.7 cm; Wt 110.7 kg
[~2022-10-08 04:45] MED LIST changes: +APIX5TAB PO; +CYCL10TA24 PO; +DOXA2TAB PO; +METO25TA6 PO
[2022-10-08 04:50] VITALS: BP_SYST 222
[2022-10-08 05:28] LABS: BASOPHILS % (AUTO) 0.3 % (0.0-2.0); EOSINOPHILS # (AUTO) 0.1 K/uL (0.0-0.4); EOSINOPHILS % (AUTO) 1.3 % (0.0-4.0); HEMATOCRIT 39.6 % (36-48); HEMOGLOBIN 13.5 g/dL (12.0-16.0); LYMPHOCYTES # (AUTO) 2.2 K/uL (1.0-5.5); LYMPHOCYTES % (AUTO) 32.2 % (20.5-51.5); MEAN CORPUSCULAR HEMOGLOBIN 33 pg (27-31); MEAN CORPUSCULAR HGB CONC 34 % (32-36); MEAN CORPUSCULAR VOLUME 98 fL (79.0-98.0); MONOCYTES # (AUTO) 0.5 K/uL (0.0-1.0); MONOCYTES % (AUTO) 7.8 % (1.7-9.3); NEUTROPHILS # (AUTO) 4.1 K/uL (1.8-7.7); NEUTROPHILS % (AUTO) 58.4 % (40.0-70.0); PLATELET COUNT (AUTO) 135 K/uL (130-430); RED BLOOD CELL COUNT(AUTO) 4.04 MIL/uL (4.2-6.2); RED CELL DISTRIBUTION WIDTH 13.9 % (9.0-15.0)
[2022-10-08] MEDS ORDERED: NITROGLYCERIN 1 INCH (GM) OINT. TP ONE (05:45)
[2022-10-08 06:04] LABS: ANION GAP 10 (5-15); CALCIUM 8.9 mg/dL (8.4-11.0); CHLORIDE 104 mmol/L (98-107); CREATININE 0.96 mg/dL (0.55-1.30); GFR AFRICAN AMERICAN 74 mL/min (>90); GLUCOSE 118 mg/dL (70-99); UREA NITROGEN, BLOOD 16 mg/dL (8-21)
[2022-10-08 06:22] LABS: ALANINE AMINOTRANSFERASE 22 U/L (12-78); ALBUMIN 3.9 g/dL (3.4-4.8); ASPARTATE AMINOTRANSFERASE 17 U/L (10-37); TOTAL BILIRUBIN 0.8 mg/dL (0.0-1.0)
[2022-10-08] MEDS ORDERED: DOXAZOSIN MESYLATE 2 MG TABLET PO SCH (09:00)
[2022-10-08] MEDS ORDERED: HYDROCHLOROTHIAZIDE 12.5 MG CAPSULE (HCTZ) PO SCH (09:00)
[2022-10-08 09:20] VITALS: BP_SYST 146
[2022-10-08] MEDS: LOSARTAN POTASSIUM 50 MG TABLET (COZAAR) PO SCH (10:20)
[2022-10-08] MEDS: ENOXAPARIN SODIUM 40 MG/0.4 ML SYRINGE SUBCUT SCH (10:21)
[2022-10-08] MEDS: METOPROLOL TARTRATE 25 MG TABLET PO SCH ×2 (10:21→20:21)
[2022-10-08 12:00] VITALS: BP_SYST 140
[2022-10-08 16:00] VITALS: BP_SYST 137
[2022-10-08] MEDS: guaiFENesin/DEXTROMETHORPHAN 10 ML UDC PO PRN ×2 (17:37→21:51)
[2022-10-08 20:00] VITALS: BP_SYST 127
[2022-10-08] MEDS: CYCLOBENZAPRINE HCL 10 MG TABLET (FLEXERIL) PO SCH (20:21)
[2022-10-08] MEDS: ATORVASTATIN 20 MG TABLET PO SCH (20:21)
[2022-10-08] MEDS: DOXAZOSIN MESYLATE 2 MG TABLET PO SCH (20:22)
[2022-10-09] VITALS: BP_SYST 150
[2022-10-09] MEDS: DOXAZOSIN MESYLATE 2 MG TABLET PO SCH ×2 (09:00→20:27)
[2022-10-09] MEDS: METOPROLOL TARTRATE 25 MG TABLET PO SCH ×2 (09:00→20:28)
[2022-10-09] MEDS: LOSARTAN POTASSIUM 50 MG TABLET (COZAAR) PO SCH (09:19)
[2022-10-09] MEDS: ENOXAPARIN SODIUM 40 MG/0.4 ML SYRINGE SUBCUT SCH (09:20)
[2022-10-09 12:00] VITALS: BP_SYST 151
[2022-10-09] MEDS: guaiFENesin/DEXTROMETHORPHAN 10 ML UDC PO PRN ×2 (15:29→20:27)
[2022-10-09 16:00] VITALS: BP_SYST 126
[2022-10-09 20:00] VITALS: BP_SYST 159
[2022-10-09] MEDS: ATORVASTATIN 20 MG TABLET PO SCH (20:27)
[2022-10-09] MEDS: CYCLOBENZAPRINE HCL 10 MG TABLET (FLEXERIL) PO SCH (20:27)
[2022-10-10] VITALS: BP_SYST 150
[2022-10-10] MEDS ORDERED: HYDR12.585 PO ×2 (08:40)
[2022-10-10] MEDS ORDERED: METO25TA6 PO ×3 (08:40→08:49)
[2022-10-10] MEDS ORDERED: CYCL10TA24 PO (08:49)
[2022-10-10] MEDS ORDERED: CAR1 PO (08:51)
[2022-10-10] MEDS: METOPROLOL TARTRATE 25 MG TABLET PO SCH (08:51)
[2022-10-10] MEDS: ENOXAPARIN SODIUM 40 MG/0.4 ML SYRINGE SUBCUT SCH (08:51)
[2022-10-10] MEDS: LOSARTAN POTASSIUM 50 MG TABLET (COZAAR) PO SCH (08:52)
[2022-10-10] MEDS: DOXAZOSIN MESYLATE 2 MG TABLET PO SCH (08:53)
[2022-10-10] MEDS: guaiFENesin/DEXTROMETHORPHAN 10 ML UDC PO PRN (09:07)
== END 2022-10-10 11:00 | disposition home or self-care (01) | DRG 281 ==
LOC: SED 04:45 → STU 07:47
PROVIDERS: ADMIT General Practice; ATTEND General Practice
DX: I49.9 Cardiac arrhythmia, unspecified (principal); I21.A1 Myocardial infarction type 2; I48.20 Chronic atrial fibrillation, unspecified; F41.9 Anxiety disorder, unspecified; I10 Essential (primary) hypertension; Z20.822 Contact with and (suspected) exposure to COVID-19; I49.3 Ventricular premature depolarization; M62.838 Other muscle spasm; E78.5 Hyperlipidemia, unspecified; Z79.01 Long term (current) use of anticoagulants; Z79.899 Other long term (current) drug therapy
CPT/HCPCS: 36415; 71045; 80053; 83880; 84484; 85025; 93005; 93306; 99285; G0378; J1650

== ENCOUNTER 2024-06-07 14:31 | Emergency (ER) | payer BC ==
[~2024-06-07] VITALS: Ht 167.6 cm; Wt 88.5 kg
[~2024-06-07 14:31] MED LIST changes: +DOXA-7 PO; +DOXA1TAB PO; -DOXA2TAB PO; -HYDR12.585 PO; +LOSA-415 PO; -LOSA100T3 PO
[2024-06-07 14:48] VITALS: BP_SYST 162; PULSE 66; RESP 18; TEMP 97.4; O2SAT 96
[2024-06-07] MEDS ORDERED: DOXY100C5 PO (15:36)
[2024-06-07] MEDS: LIDOCAINE 1% 10 MG/ML, 20 ML MDV INJ ONE (16:00)
[2024-06-07 16:03] VITALS: BP_SYST 138; PULSE 62; RESP 12; TEMP 98; O2SAT 98
== END 2024-06-07 16:01 | disposition home or self-care (01) ==
LOC: SED 14:31
DX: L02.222 Furuncle of back [any part, except buttock and flank] (principal); L02.212 Cutaneous abscess of back [any part, except buttock and flank]; I10 Essential (primary) hypertension; Z88.6 Allergy status to analgesic agent; Z91.011 Allergy to milk products
CPT/HCPCS: 99283